=== PATIENT | male | born 1990 | race Caucasian/White ===

== ENCOUNTER 2016-10-09 11:06 | Emergency (ER) | payer OTHER ==
[~2016-10-09] VITALS: Ht 182.9 cm; Wt 63.5 kg
[~2016-10-09 11:06] MED LIST: AMOXICILLIN 50500 M1 PO; NOHOMEMEDICATIONS; PERIDEX 0.12%473 M1 SSP; PHENERGAN 25 MG25 M1 PO; ZOFRAN ODT4 MG PO
[2016-10-09 11:09] VITALS: BP 123/69
[2016-10-09] MEDS ORDERED: NAPROSYN500 MG PO (11:22)
[2016-10-09] MEDS ORDERED: AMOXICILLIN 50500 MG PO (11:22)
== END 2016-10-09 11:42 | disposition home or self-care (01) ==
LOC: ER 11:06
DX: K02.9 Dental caries, unspecified (principal); F10.99 Alcohol use, unspecified with unspecified alcohol-induced disorder; F15.90 Other stimulant use, unspecified, uncomplicated